=== PATIENT | male | born 1970 | race Caucasian/White ===

== ENCOUNTER 2023-11-23 09:09 | Outpatient (CLI) | payer OTHER, SELFPAY | END 2023-11-23 09:10 | disposition home or self-care (01) | PROVIDERS: PCP Family Medicine; Visit Provider Family Medicine | DX: Z80.42 Family history of malignant neoplasm of prostate (principal); Z12.5 Encounter for screening for malignant neoplasm of prostate; Z13.228 Encounter for screening for other metabolic disorders; Z13.220 Encounter for screening for lipoid disorders | CPT/HCPCS: 80048; 80061; G0103 ==

== ENCOUNTER 2023-12-14 07:07 | Outpatient (CLI) | payer OTHER, SELFPAY ==
--- NOTE | 2023-12-14 08:06 | W.ANESCHARGE ---
Anesthesia Charges Start Date/Time Anesthesia Start Date: 12/14/23 Anesthesia Start Time: 07:42 Stop Date/Time Anesthesia Stop Date: 12/14/23 Anesthesia Stop Time: 08:02
--- NOTE | 2023-12-14 11:03 | W.ANESCHARGE ---
Anesthesia Charges Start Date/Time Anesthesia Start Date: 12/14/23 Anesthesia Start Time: 07:42 Stop Date/Time Anesthesia Stop Date: 12/14/23 Anesthesia Stop Time: 08:02
== END 2023-12-14 07:08 | disposition home or self-care (01) ==
LOC: OP CLINIC 07:08
PROVIDERS: PCP Family Medicine; Visit Provider Internal Medicine
DX: Z12.11 Encounter for screening for malignant neoplasm of colon (principal); K57.30 Diverticulosis of large intestine without perforation or abscess without bleeding
CPT/HCPCS: 00811; 00812; 45378; J2704